=== PATIENT | female | born 1980 | race Hispanic/Latino ===

== ENCOUNTER 2025-01-05 15:14 | Emergency (ER) | payer SELFPAY ==
[~2025-01-05] VITALS: Ht 154.9 cm; Wt 68.0 kg
--- NOTE | 2025-01-05 15:25 | ERN ---
ED Note History of Present Illness Stated Complaint: GENERALIZED BODY ACHE X 2 MONTHS Chief Complaint: Generalized Body Aches Time Seen by MD: 15:17 Dictation: PATIENT IS A 44-YEAR-OLD FEMALE COMING IN WITH MULTIPLE COMPLAINTS. FIRST COMPLAINT IS SHE SAID SHE HAS SWELLING IN HER ANKLES OFF AND ON FOR THE LAST TWO MONTHS. SECOND COMPLAINT IS SHE STATES SHE HAS PERIODS WHERE SHE HAS SHORTNESS A BREATH. NO CHEST PAIN NO BACK PAIN NO JAW PAIN NO ARM PAIN. THIRD COMPLAINT IS SHE JUST FEELS WEAK. SHE HAS BEEN TO SEE HER PRIMARY CARE DOCTOR AT [facility], AND WAS PUT ON AN IRON SUPPLEMENT AND WAS GIVEN FLEXERIL FOR AN UNKNOWN REASON.. Allergies: Coded Allergies: No Known Drug Allergies (Unverified Allergy, Unknown, 01/05/25) Past Medical History Past Medical History: No Pertinent History Surgical History: Other, Surgical History Other: BREAST AUMENTATION, BUTTOCKS SURGERY History: Not Applicable RN Note Reviewed/Agreed w/PFSH: Yes Review of System Dictation CONSTITUTIONAL: NEGATIVE EXCEPT FOR HPI INTERMITTENT SHORTNESS A BREATH WEAKNESS HEAD/FACE: NEGATIVE EXCEPT FOR HPI EENT: NEGATIVE EXCEPT FOR HPI RESPIRATORY: NEGATIVE EXCEPT FOR HPI GENERALIZED BODY WEAKNESS GASTROINTESTINAL/ABDOMINAL: NEGATIVE EXCEPT FOR HPI GENITOURINARY: NEGATIVE EXCEPT FOR HPI MUSCULOSKELETAL: NEGATIVE EXCEPT FOR HPI INTEGUMENTARY: NEGATIVE EXCEPT FOR HPI NEUROLOGICAL/PSYCH: NEGATIVE EXCEPT FOR HPI HEMATOLOGIC/LYMPHATIC: NEGATIVE EXCEPT FOR HPI ALL SYSTEMS NEGATIVE, EXCEPT NOTED ABOVE. 13 POINT REVIEW OF SYSTEMS ASSESSED AND ALL NEGATIVE EXCEPT FOR ABOVE. Initial Vital Sign VS Vital Signs Date Time Temp Pulse Resp B/P (MAP) Pulse Ox O2 Delivery O2 Flow Rate FiO2 01/05/25 15:16 98.2 98 16 118/64 98 Room Air 01/05/25 15:52 0 21 Physical Exam Dictation VITAL SIGNS REVIEWED GENERAL APPEARANCE: ALERT, ORIENTED X 3, NO ACUTE DISTRESS, WELL DEVELOPED, NOURISHED. HEAD AND FACE: NON-TRAUMATIC. EYES: PERRL, PINK CONJUNCTIVAS, EYELID NO TRAUMA, ANTERIOR CHAMBER WITH ARCUS SENILIS. EARS: PINNAS INTACT AND NO SIGNS OF TRAUMA OR ERYTHEMA EAR CANALS CLEAR AND NO DISCHARGE TM NO ERYTHEMA NOSE: NO DISCHARGE, NO BLEEDING. OROPHARYNX: MOUTH NORMAL, TONGUE PINK, PHARYNX CLEAR,NO ERYTHEMA, TONSILS NO EXUDATES, NO ABSCESSES NOTED, MUCOUS MEMBRANE MOIST NECK: SUPPLE, NON-TENDER, NO THYROMEGALY, NO MASSES, NO JVD, NO BRUITS BREAST:DEFERRED CHEST:NO TENDERNESS, NO CREPITUS, NO PARADOXICAL MOVEMENT, NO RETRACTIONS LUNGS:CLEAR, WELL-VENTILATED, SYMMETRIC, NO RALES, NO WHEEZING, NO RHONCHI, NO STRIDOR, GOOD BREATH SOUNDS BILATERALLY HEART: REGULAR RATE, REGULAR RHYTHM, NO MURMUR, NO GALLOPS VASCULAR: NO PERIPHERAL EDEMA, ABDOMEN: SOFT, POSITIVE BOWEL SOUNDS, NONDISTENDED, NO GUARDING, NONTENDER, NO REBOUND, NO MASSES NO HEPATOMEGALY, NO SPLENOMEGALY, NO SMITH'S SIGN, NO HERNIAS. RECTAL: DEFERRED GENITAL: DEFERRED NEUROLOGICAL: NORMAL SPEECH, MOTOR FUNCTION INTACT, SENSORY FUNCTION INTACT MUSCULOSKELETAL: NECK NONTENDER, FULL RANGE OF MOTION, BACK NONTENDER, FULL RANGE OF MOTION, EXTREMITIES: NONTENDER, FULL RANGE OF MOTION SKIN: COLOR PINK, DRY, NO TURGOR, NO RASH, NO LACERATIONS, NO ABRASIONS, NO CONTUSIONS. LYMPHATIC: DEFERRED Results (Laboratory/Radiology) Laboratory/Radiology Laboratory Tests Test 01/05/25 15:36 White Blood Count 6.9 K/uL (4.8-10.8) Red Blood Count 3.94 MIL/uL (4.00-5.50) L Hemoglobin 7.9 g/dL (12.0-16.0) L Hematocrit 27.5 % (36-48) L Mean Corpuscular Volume 69.8 fL (79-99) L Mean Corpuscular Hemoglobin 20.1 pg (27.0-33.0) L Mean Corpuscular Hemoglobin Concent 28.7 g/dL (32.0-36.0) L Red Cell Distribution Width 19.6 % (11.0-15.5) H Platelet Count 526 K/uL (130-400) H Mean Platelet Volume 8.1 fL (7.5-10.5) Immature Granulocyte % (Auto) 0.4 % (0-1) Neutrophils (%) (Auto) 80.0 % (40.0-77.0) H Lymphocytes (%) (Auto) 10.9 % (21.0-51.0) L Monocytes (%) (Auto) 7.1 % (3.0-13.0) Eosinophils (%) (Auto) 0.9 % (0.0-8.0) Basophils (%) (Auto) 0.7 % (0.0-5.0) Neutrophils # (Auto) 5.5 K/uL (1.8-7.7) Lymphocytes # (Auto) 0.8 K/uL (1.0-4.8) L Monocytes # (Auto) 0.5 K/uL (0.1-1.0) Eosinophils # (Auto) 0.06 K/uL (0.00-0.70) Basophils # (Auto) 0.05 K/uL (0.00-0.20) Absolute Immature Granulocyte (auto 0.03 K/uL (0-1) Nucleated Red Blood Cells 0.0 % (0.0-0.19) Red Blood Cell Morphology See comments Sodium Level 138 mmol/L (136-145) Potassium Level 3.8 mmol/L (3.5-5.1) Chloride Level 101 mmol/L (101-111) Carbon Dioxide Level 29 mmol/L (21-32) Blood Urea Nitrogen 7 mg/dL (7-18) Creatinine 0.6 mg/dL (0.5-1.0) Glomerular Filtration Rate Calc 113 mL/min (>90) Random Glucose 98 mg/dL (70-105) Total Calcium 8.7 mg/dL (8.5-10.1) Magnesium Level 1.70 mg/dL (1.80-2.40) L Troponin I High Sensitivity < 4 ng/L (4-50) L B-Type Natriuretic Peptide 20 pg/mL (0-100) Labs Reviewed?: Yes EKG Comment: EKG NORMAL SINUS RHYTHM/HEART RATE 81/AXIS NORMAL/NO ECTOPY ED Course ED Course Orders Procedure Category Date Status Time Cbc With Differential LAB 01/05/25 Complete 15:21 12 Lead Ekg Tracing- EKG 01/05/25 Complete Technical 15:21 Magnesium LAB 01/05/25 Complete 15:21 Basic Metabolic Panel LAB 01/05/25 Complete 15:21 B-Type Natriuretic LAB 01/05/25 Complete Peptide 15:21 Troponin I High LAB 01/05/25 Complete Sensitivity 16:15 Vital Signs Date Time Temp Pulse Resp B/P (MAP) Pulse Ox O2 Delivery O2 Flow Rate FiO2 01/05/25 15:52 98.2 98 16 118/64 98 Room Air* 0 21 01/05/25 15:16 98.2 98 16 118/64 98 Room Air 1712/spoke with patient at length regarding her clinical findings. She was strongly advised to follow back up with her doctor in the next one two days for her complaints. All questions answered Medical Decision Making MDM MDM: Differential diagnosis: ACS/AMI/electrolyte imbalance/dehydration/SARs COVID/anemia Rationale: Tests considered and ordered secondary to shared decision making include: EKG/labs Previous outside records reviewed: Old ER visits. Risk of complication and/or morbidity or mortality of patient management: None Medications-Per medication reconciliation Need for hospitalization: Patient does not meet criteria for hospitalization. None Need for emergency major/minor surgery: No There are no social concerns with this patient. Prescription drug management magnesium glycinate Prescriptions will include symptomatic care Patient's prior external medical records from other ER visits were reviewed by me as indicated. Prior testing and results from previous visits were reviewed. Prior tests were taken into account with medical decision making and resource utilization, independent historian/historians were used to obtain complete medical history. I independently interpreted the test that were performed, results were reviewed by me and considered findings on radiology if ordered. Medical management and examination interpretation discussions were had by me with other qualified healthcare professionals as indicated for the patient's care. DX & DISP Disposition: Discharge Departure Impression: Primary Impression: Chronic anemia Additional Impressions: Hypomagnesemia, Weakness Condition: Stable Scripts Magnesium Oxide/Mag Aa Chelate (Magnesium 300 mg Capsule) 300 Mg Capsule 300 MG PO DAILY for 10 Days, #10 CAP 0 Refills Prov: JASMINEREIDKESHIA MACHINE PRINTER 01/05/25 Additional Instructions: Follow-up with primary care provider in 1 to 2 days. Take medications as directed here in the emergency room. Okay to continue home medications unless otherwise discussed during your visit in the emergency room today. Return to [facility] emergency room if symptoms worsen or if there is no improvement. Call 911 if you need immediate assistance. Take Tylenol or Motrin [id number] as needed and if no contraindications are present. Increase oral hydration. A wound culture or urine culture was ordered here in the emergency room department please follow-up with primary care provider and advise them to get repeat ports from our facility. If you had any Hu wrap/splints that were applied here, please do not remove them until you see your primary care or specialty. Take magnesium as directed daily until gone. Follow up with your primary care doctor in the next one two days for management. Referrals: SELF,REFERRAL (PCP) Time of Disposition: 17:15 I have reviewed the case, and I agree with, Diagnosis and Plan KESHIA ALMANZA MACHINE PRINTER Jan 05, 2025 15:25
[2025-01-05 15:46] LABS: IMMATURE GRANULOCYTE ABSOLUTE 0.03 K/uL (0-1); NUCLEATED RED BLOOD CELLS 0.0 % (0.0-0.19); PLATELET COUNT (AUTO) 526 K/uL (130-400); RED BLOOD CELL COUNT(AUTO) 3.94 MIL/uL (4.00-5.50); RED CELL DISTRIBUTION WIDTH 19.6 % (11.0-15.5); WHITE BLOOD COUNT (AUTO) 6.9 K/uL (4.8-10.8)
--- NOTE | 2025-01-05 15:54 | EKG ---
[facility] Test Date: 2025-01-05 Test Time: 15:49:12 Pat Name: NAHOMY RAI Department: ED Room: Gender: F [employer] Attendant: [id number] : [id number] Requested By: KESHIA ALMANZA Order Number: [id number] Reading MD: Margarito Snowden Measurements Intervals [place] Rate: 81 P: 43 KS: 160 QRS: 65 QRSD: 74 T: 38 QT: 356 QTc: 413 Interpretive Statements Sinus rhythm Low voltage, precordial leads No previous ECG available for comparison Electronically Signed On 01-05-2025 21:59:33 CDT by Margarito Snowden Please click the below link to view image of tracing.
[2025-01-05 16:03] LABS: CREATININE 0.6 mg/dL (0.5-1.0); GLOMERULAR FILTR. RATE CALC 113.0 mL/min (>90); GLUCOSE,RANDOM 98.0 mg/dL (70-105); SODIUM SERUM 138.0 mmol/L (136-145); UREA NITROGEN, BLOOD 7.0 mg/dL (7-18)
[2025-01-05] MEDS ORDERED: MAGN300C PO (17:15)
[2025-01-05 17:20] VITALS: BP 121/68; PULSE 75; RESP 16; TEMP 98.2; O2SAT 98
== END 2025-01-05 17:21 | disposition home or self-care (01) ==
LOC: EDH 15:14
DX: D64.9 Anemia, unspecified (principal); E83.42 Hypomagnesemia; R53.1 Weakness; Z98.890 Other specified postprocedural states
CPT/HCPCS: 36415; 80048; 83735; 83880; 84484; 85025; 93005; 99284